=== PATIENT | female | born 1940 | race Caucasian/White ===

== ENCOUNTER 2021-07-19 17:36 | Emergency (ER) | payer OTHER ==
[~2021-07-19] VITALS: Ht 142.2 cm; Wt 49.0 kg
[~2021-07-19 17:36] MED LIST: CIPRO500 MG; ROBINUL FORTE2 MG
[2021-07-19] MEDS ORDERED: GRALISE600 MG (19:53)
[2021-07-19] MEDS ORDERED: LOSARTAN POTAS100 MG (19:53)
[2021-07-19] MEDS ORDERED: PANTOPRAZOLE SO40 M2 (19:53)
[2021-07-19] MEDS ORDERED: CIPROFLOXA250 MG/5 M (19:53)
[2021-07-19] MEDS ORDERED: ATORVASTATIN CA10 MG (19:53)
[2021-07-19] MEDS ORDERED: FOLIC ACID0.8 M1 (19:53)
[2021-07-19] MEDS ORDERED: AMLODIPINE-OLM1 EAC2 (19:54)
[2021-07-19] MEDS ORDERED: SYNTHROID88 MCG (19:54)
[2021-07-19] MEDS ORDERED: DUI500 PO (20:41)
== END 2021-07-19 20:52 | disposition home or self-care (01) ==
LOC: ER 17:36
DX: H00.032 Abscess of right lower eyelid (principal)

== ENCOUNTER 2023-01-02 14:05 | Emergency (ER) | payer OTHER ==
[~2023-01-02] VITALS: Ht 152.4 cm; Wt 41.7 kg
[~2023-01-02 14:05] MED LIST changes: +AMLODIPINE-OLM1 EAC2; +ATORVASTATIN CA10 MG; +CIPROFLOXA250 MG/5 M; +DUI500 PO; +FOLIC ACID0.8 M1; +GRALISE600 MG; +LOSARTAN POTAS100 MG; +PANTOPRAZOLE SO40 M2; +SYNTHROID88 MCG
[2023-01-02] MEDS ORDERED: ZOFRAN8 MG PO (18:19)
[2023-01-02] MEDS ORDERED: PEPCID20 MG PO (18:19)
== END 2023-01-02 18:30 | disposition home or self-care (01) ==
LOC: ER 14:05
DX: K29.70 Gastritis, unspecified, without bleeding (principal); I11.9 Hypertensive heart disease without heart failure; K27.9 Peptic ulcer, site unspecified, unspecified as acute or chronic, without hemorrhage or perforation; E78.49 Other hyperlipidemia

== ENCOUNTER 2024-02-11 15:42 | Emergency (ER) | payer OTHER ==
[~2024-02-11] VITALS: Ht 149.9 cm; Wt 43.1 kg
[~2024-02-11 15:42] MED LIST changes: +PEPCID20 MG PO; +ZOFRAN8 MG PO
[2024-02-11] MEDS ORDERED: ARICEPT5 MG (16:43)
[2024-02-11] MEDS ORDERED: LOSARTAN POTAS100 MG PO (16:43)
[2024-02-11] MEDS ORDERED: NORVASC2.5 M1 PO (16:43)
[2024-02-11] MEDS ORDERED: LIPIDSAVE DR 11 EACH (16:43)
[2024-02-11] MEDS ORDERED: PEPCID AC20 MG (16:44)
[2024-02-11 17:07] LABS: HEMATOCRIT 33.3 % (36.0-45.00); HEMOGLOBIN 11.3 g/dL (12.0-15.00); MEAN CELL VOLUME 85.6 fL (80.00-100.00); MEAN CORPUSCULAR HGB CONC 33.8 g/dl (32.0-36.0); PLATELET COUNT 137 K/uL (150-450); RED BLOOD COUNT 3.89 M/uL (4.00-6.00); RED CELL DISTRIBUTION WIDTH 15.4 % (11.5-14.5)
[2024-02-11 17:21] LABS: URINE APPEARANCE Clear; URINE BILIRRUBIN Small (NEGATIVE); URINE BLOOD Negative; URINE COLOR Orange; URINE GLUCOSE Negative (NEGATIVE); URINE KETONE Negative (NEGATIVE); URINE LEUKOCYTE Small; URINE NITRATE Positive; URINE PROTEIN Negative (NEGATIVE)
[2024-02-11 17:25] LABS: URINE EPITHELIAL CELLS 11.5 uL (0.0-38.8); URINE RBC 4.4 uL (0.0-20.8); URINE WBC 9.5 uL (0.0-23.2)
[2024-02-11 17:28] LABS: CALCIUM 9.7 mg/dL (8.5-10.1); CREATININE SERUM 1.09 mg/dL (0.55-1.02); GFR 47.59; POTASSIUM 4.14 mEq/L (3.5-5.1)
[2024-02-11] MEDS ORDERED: ORPHENADRINE CITRATE 30 MG/ML AMPUL IM STA (18:20)
[2024-02-11] MEDS ORDERED: CEFTRIAXONE SODIUM 1,000 MG VIAL IM STA (18:27)
[2024-02-11] MEDS ORDERED: ORPHENADRINE CITRATE 30 MG/ML AMPUL ONE (18:29)
== END 2024-02-11 18:47 | disposition home or self-care (01) ==
LOC: ER 15:44
PROVIDERS: General Practice
DX: R30.0 Dysuria (principal); M54.9 Dorsalgia, unspecified; N39.0 Urinary tract infection, site not specified
CPT/HCPCS: 36415; 96372; 99282; J0696; J2360

== ENCOUNTER 2024-06-12 10:11 | Emergency (ER) | payer OTHER ==
[~2024-06-12] VITALS: Ht 154.9 cm; Wt 43.1 kg
[~2024-06-12 10:11] MED LIST changes: +ARICEPT5 MG; +LIPIDSAVE DR 11 EACH; +LOSARTAN POTAS100 MG PO; +NORVASC2.5 M1 PO; +PEPCID AC20 MG
[2024-06-12] MEDS ORDERED: FAMOtidine 10 MG/ML (4ML VIAL) IV ONE (10:30)
[2024-06-12] MEDS ORDERED: DICYCLOMINE HCL 20 MG TABLET PO ONE (10:30)
[2024-06-12 11:31] LABS: HEMATOCRIT 37.9 % (36.0-45.00); HEMOGLOBIN 12.9 g/dL (12.0-15.00); MEAN CELL VOLUME 86.6 fL (80.00-100.00); MEAN CORPUSCULAR HEMOGLOBIN 29.5 pg (27.00-32.0); MEAN CORPUSCULAR HGB CONC 34.1 g/dl (32.0-36.0); PLATELET COUNT 155 K/uL (150-450); RED BLOOD COUNT 4.38 M/uL (4.00-6.00); RED CELL DISTRIBUTION WIDTH 14.9 % (11.5-14.5)
[2024-06-12 11:34] LABS: PH,URINE 6.5 (5.0-8.0); URINE APPEARANCE Clear; URINE BILIRRUBIN Negative (NEGATIVE); URINE BLOOD Negative; URINE COLOR Yellow; URINE GLUCOSE Negative (NEGATIVE); URINE KETONE Negative (NEGATIVE); URINE LEUKOCYTE Large; URINE NITRATE Negative; URINE PROTEIN Negative (NEGATIVE); URINE UROBILINOGEN 0.2 E.U./dl
[2024-06-12 11:38] LABS: URINE EPITHELIAL CELLS 19.4 uL (0.0-38.8); URINE RBC 6.1 uL (0.0-20.8); URINE WBC 219.8 uL (0.0-23.2)
[2024-06-12 11:44] LABS: URINE CAST 0.14 uL (0.0-1.40)
[2024-06-12 11:58] LABS: ALBUMIN 3.9 gm/dL (3.4-5.0); BILIRUBIN TOTAL 0.5 mg/dL (0.3-1.2); CALCIUM 10.2 mg/dL (8.5-10.1); CREATININE SERUM 0.84 mg/dL (0.55-1.02); GFR 64.29; GLOBULINA 3.5 G/DL (2.4-3.5); POTASSIUM 3.76 mEq/L (3.5-5.1); TOTAL PROTEIN 7.4 gm/dL (6.4-8.2)
[2024-06-12] MEDS ORDERED: NEURONTIN300 MG PO (15:19)
[2024-06-12] MEDS ORDERED: PEPCID AC20 MG PO (15:19)
[2024-06-12] MEDS ORDERED: ZOVIRAX800 MG PO (15:19)
[2024-06-12] MEDS ORDERED: ZOVIRAX5 GM TOP (15:25)
== END 2024-06-12 15:30 | disposition home or self-care (01) ==
LOC: ER 10:13
PROVIDERS: General Practice
DX: B02.9 Zoster without complications (principal); R10.9 Unspecified abdominal pain
CPT/HCPCS: 36415; 71045; 93005; 96365; 99283; J3490